=== PATIENT | male | born 1955 | race Caucasian/White ===

== ENCOUNTER → 2017-05-27 | Outpatient (CLI) | payer MEDICARE ==
--- NOTE | 2017-05-28 05:58 | RAD ---
Procedure: XR HAND 3 OR MORE VIEWS Exam Date: 05/27/2017 8:55 AM CDT Ordering Provider: HOLGER LEWIS Clinical Indication: PAIN IN RIGHT HAND Comparison: None Findings: Subtle cortical irregularity seen at the base of the fifth metacarpal. This may be a chronic fracture deformity, however subacute fracture could also have this appearance. Correlate with point tenderness. There is no subluxation of the fourth or fifth CMC articulations. Otherwise, no fractures or subluxations. Articular surfaces of the hand and visualized wrist are normal. There are no lytic or sclerotic lesions. There is no radiopaque foreign body. There is no subcutaneous gas. Impression: Subtle cortical irregularity seen at the base of the right fifth metacarpal as above. Correlate with point tenderness. Otherwise, nonacute right hand series. Electronically signed by: Daryl Hidalgo MD 05/28/2017 5:56 AM CDT
== END | disposition home or self-care (01) ==
LOC: RAD 08:49
PROVIDERS: ATTEND Orthopaedic Surgery
DX: M79.641 Pain in right hand (principal)

== ENCOUNTER → 2017-06-11 | Outpatient (CLI) | payer MEDICARE ==
--- NOTE | 2017-06-11 16:06 | RAD ---
EXAM DESCRIPTION: Hand,Right 3 Views CLINICAL HISTORY: CLOSED FX OF METACARPAL- RIGHT COMPARISON: 27 May 2017 TECHNIQUE: Right hand 3 views FINDINGS: Degenerative changes are observed in the distal interphalangeal joints throughout the hand. A nondisplaced fracture of the proximal aspect of the fourth metacarpal is observed. No significant callus formation is observed. Nondisplaced fracturing of the proximal aspect of the fifth metacarpal is also observed. There is also deformity from remote fracturing. IMPRESSION: Nondisplaced fractures of the proximal shafts of the fourth and fifth metacarpals are observed. No significant callus formation is detected. Electronically signed by: Manuel Elizabeth MD 06/11/2017 4:05 PM CDT
== END | disposition home or self-care (01) ==
LOC: RAD 08:39
PROVIDERS: ATTEND Orthopaedic Surgery
DX: S62.300D Unspecified fracture of second metacarpal bone, right hand, subsequent encounter for fracture with routine healing (principal)

== ENCOUNTER → 2017-07-01 | Outpatient (CLI) | payer MEDICARE ==
--- NOTE | 2017-07-01 21:16 | RAD ---
EXAM DESCRIPTION: Hand,Right 3 Views CLINICAL HISTORY: 62 years, Male, CLOSED FRACTURE OF METACARPAL BONE COMPARISON: June 11 FINDINGS: Fractures of the proximal 4th and 5th metacarpals are again identified. The 4th metacarpal fracture appears stable in position with perhaps small amount healing. The 5th metacarpal fracture is posterior medially subluxed appearing slightly more than earlier study. Difference however may be related to subtle variations in positioning. An old fracture distal 5th metacarpal is noted. IMPRESSION: Fractures of the proximal 4th and 5th metacarpals again noted. 4th metacarpal fracture shows perhaps slight interval healing in stable position. No clearly seen healing 5th metacarpal fracture. The fracture appears to be posterior medially subluxed slightly more than earlier study. However the difference may be an artifact of slight variation in position. Please correlate clinically and obtain additional films if indicated Electronically signed by: Ankur Giron MD 07/01/2017 9:15 PM CDT
== END | disposition home or self-care (01) ==
LOC: RAD 09:41
PROVIDERS: ATTEND Orthopaedic Surgery
DX: S62.306D Unspecified fracture of fifth metacarpal bone, right hand, subsequent encounter for fracture with routine healing (principal); X58.XXXA Exposure to other specified factors, initial encounter